=== PATIENT | male | born 1955 | race Caucasian/White ===

== ENCOUNTER 2017-10-22 14:33 | Outpatient (CLI) | payer MEDICARE | END 2017-10-22 23:59 | disposition home or self-care (01) | LOC: RAD 14:33 | PROVIDERS: ATTEND Surgery | DX: N43.3 Hydrocele, unspecified (principal); R10.30 Lower abdominal pain, unspecified | CPT/HCPCS: 76705; 76870 ==

== ENCOUNTER 2023-01-31 12:51 | Outpatient (CLI) | payer BC | END 2023-01-31 23:59 | disposition home or self-care (01) | LOC: RAD 12:51 | PROVIDERS: ATTEND Family Medicine | DX: G70.01 Myasthenia gravis with (acute) exacerbation (principal); R13.14 Dysphagia, pharyngoesophageal phase; R13.12 Dysphagia, oropharyngeal phase; R47.1 Dysarthria and anarthria; K21.9 Gastro-esophageal reflux disease without esophagitis | CPT/HCPCS: 74230 ==